=== PATIENT | male | born 1985 | race Caucasian/White ===

== ENCOUNTER 2019-10-21 09:44 | Outpatient (CLI) | payer BC, SELFPAY ==
[2019-10-21 16:49] LABS: Liquefaction Semen Complete in 30 min. (<30 minutes); Semen Color Opaque (Grey-opaque); Semen Viscosity Not Increased (Not Increa.); Volume Semen 1.5 mL (1.5-5.0)
[2019-10-21 16:50] LABS: Semen Immotility 20 %; Semen Morphology Result to Follow; Semen Non-Progressive Motility 10 %; Semen Progressive Motility 70 % (>32); Semen Total Motility 80 (>40% (PM+NP)); Sperm Count 53.6 Mil/mL (60-150 million/mL)
[2019-10-30 15:24] LABS: Fructose, Semen 510 mg/dL (150-600)
== END 2019-10-21 09:45 | disposition home or self-care (01) ==
LOC: CHSLAB 09:49
PROVIDERS: Visit Provider Obstetrics & Gynecology
DX: N46.9 Male infertility, unspecified (principal)
CPT/HCPCS: 82757; 88160; 89320

== ENCOUNTER 2019-11-25 18:18 | Outpatient (CLI) | payer BC, SELFPAY ==
[2019-11-25 18:38] LABS: Basophils Absolute Auto 0.04 K/mm3 (0.00-0.10); Basophils Percent Auto 0.5 % (0.0-1.0); Eosinophils Absolute Auto 0.31 K/mm3 (0.02-0.50); Eosinophils Percent Auto 4.2 % (1.0-6.0); Hematocrit 44.4 % (40.0-54.0); Immature Granulocyte Absolute 0.01 K/mm3 (0.00-0.00); Immature Granulocyte Percent A 0.1 % (0.0-0.0); Lymphocytes Absolute Auto 2.38 K/mm3 (1.10-4.50); Lymphocytes Percent Auto 32.1 % (18.0-42.0); Mean Corpuscular HGB Conc 33.8 g/dL (32.0-36.0); Mean Corpuscular Hemoglobin 28.4 pg (27.0-31.0); Mean Corpuscular Volume 84.1 fL (78.0-102.0); Mean Platelet Volume 9.7 fl (8.7-11.0); Monocytes Absolute Auto 0.36 K/mm3 (0.10-0.90); Monocytes Percent Auto 4.9 % (2.0-11.0); Neutrophils Absolute Auto 4.3 K/mm3 (1.7-7.2); Neutrophils Percent Auto 58.2 % (50.0-70.0); Platelet Count Result 232 K/mm3 (150-420); Red Blood Count 5.28 M/mm3 (4.70-6.10); Red Cell Distribution Width 12.3 % (11.6-14.4); White Blood Count 7.4 K/mm3 (4.8-10.8)
[2019-11-25 18:47] LABS: Hemoglobin A1C 9.1 % (<5.7)
[2019-11-25 19:40] LABS: Albumin Level 3.9 g/dL (3.4-5.0); Anion Gap 10.8 mmol/L (7-16); Blood Urea Nitrogen 18 mg/dL (7-18); Calcium 9.3 mg/dL (8.5-10.1); Carbon Dioxide 31 mmol/L (21-32); Chloride 105 mmol/L (98-108); Estimated Glomerular Filt Rate > 60; Glucose 118 mg/dL (70-99); Osmolality Calculated 296 mOsm/kg (285-295); Phosphorus 4.2 mg/dL (2.6-4.7); Potassium 4.8 mmol/L (3.5-5.1); Sodium 142 mmol/L (136-145)
[2019-11-29 10:05] LABS: Parathyroid Intact 48 pg/mL (14-64)
== END 2019-11-25 18:19 | disposition home or self-care (01) ==
DX: Q61.3 Polycystic kidney, unspecified (principal); I10 Essential (primary) hypertension; E11.22 Type 2 diabetes mellitus with diabetic chronic kidney disease
CPT/HCPCS: 36415; 80069; 83036; 83970; 85025

== ENCOUNTER 2019-12-02 17:22 | Outpatient (CLI) | payer BC, SELFPAY ==
[2019-12-02 17:32] LABS: Collection Time Urine 24 HOURS
[2019-12-02 17:50] LABS: Total Protein Urine Random 8.6 mg/dL (0.0-11.9)
[2019-12-02 17:55] LABS: Serum Creat 1.04; Total Protein Urine 24 Hr 327 mg/24hr (0-149); Total Volume 24 Hour Urine 3800 ml
[2019-12-02 18:22] LABS: Creatinine Clearance Urine 193.3 ml/min (97-137); Patient Weight 242 Lbs
== END 2019-12-02 17:23 | disposition home or self-care (01) ==
LOC: CHSLAB 17:24
PROVIDERS: Visit Provider Internal Medicine Nephrology
DX: Q61.3 Polycystic kidney, unspecified (principal); I10 Essential (primary) hypertension; E11.22 Type 2 diabetes mellitus with diabetic chronic kidney disease
CPT/HCPCS: 81050; 82575; 84156

== ENCOUNTER 2020-06-01 15:50 | Outpatient (CLI) | payer BC, SELFPAY ==
[2020-06-01 16:14] LABS: Hemoglobin A1C 6.9 % (<5.7)
== END 2020-06-01 15:51 | disposition home or self-care (01) ==
LOC: CHSLAB 15:52
PROVIDERS: PCP Family Medicine; Visit Provider Family Medicine
DX: E11.9 Type 2 diabetes mellitus without complications (principal)
CPT/HCPCS: 36415; 83036

== ENCOUNTER 2020-08-03 14:08 | Outpatient (CLI) | payer BC, SELFPAY ==
[2020-08-04 01:18] LABS: SARS-CoV-2 RNA PCR Negative
== END 2020-08-03 14:09 | disposition home or self-care (01) ==
LOC: CHSLAB 14:11
PROVIDERS: PCP Family Medicine; Visit Provider Family Medicine
DX: Z20.828 Contact with and (suspected) exposure to other viral communicable diseases (principal)
CPT/HCPCS: 87635; C9803; U0003

== ENCOUNTER 2021-01-09 09:48 | Outpatient (CLI) | payer BC, SELFPAY | END 2021-01-09 09:49 | disposition home or self-care (01) | LOC: CHSCOVIDVC 09:49 | PROVIDERS: PCP Family Medicine | DX: Z23 Encounter for immunization (principal) | CPT/HCPCS: 0011A; 91301 ==

== ENCOUNTER 2021-02-06 09:49 | Outpatient (CLI) | payer BC, SELFPAY | END 2021-02-06 09:50 | disposition home or self-care (01) | LOC: CHSCOVIDVC 09:49 | PROVIDERS: PCP Family Medicine | DX: Z23 Encounter for immunization (principal) | CPT/HCPCS: 0012A; 91301 ==